=== PATIENT | female | born 1975 | race Caucasian/White ===

== ENCOUNTER 2020-07-08 14:10 | Outpatient (CLI) | payer OTHER ==
[~2020-07-08 14:10] MED LIST: CEFADROXIL500 MG PO; KETO10TA2 PO
== END 2020-07-08 14:20 | disposition home or self-care (01) ==
LOC: MAMO-SONO 14:10
PROVIDERS: ATTEND Obstetrics & Gynecology
DX: Z12.31 Encounter for screening mammogram for malignant neoplasm of breast (principal); N60.11 Diffuse cystic mastopathy of right breast; N60.12 Diffuse cystic mastopathy of left breast

== ENCOUNTER 2020-08-12 11:06 | Outpatient (CLI) | payer OTHER | END 2020-08-12 11:40 | disposition home or self-care (01) | LOC: SONOGRAMA 11:06 | PROVIDERS: ATTEND Surgery | DX: D24.2 Benign neoplasm of left breast (principal); N60.11 Diffuse cystic mastopathy of right breast; N60.12 Diffuse cystic mastopathy of left breast ==

== ENCOUNTER 2022-08-16 21:00 | Emergency (ER) | payer OTHER ==
[~2022-08-16] VITALS: Ht 160 cm; Wt 61.2 kg
== END 2022-08-16 22:44 | disposition home or self-care (01) ==
LOC: ER 21:00
DX: K13.79 Other lesions of oral mucosa (principal)